=== PATIENT | female | born 1995 | race Caucasian/White ===

== ENCOUNTER 2016-12-27 07:04 | Day surgery (SDC) | payer OTHER ==
[2016-12-27 07:30] LABS: BASOPHILS % 0.6 (0.0-1.5); MEAN CORPUSCULAR HEMOGLOBIN 26.1 pg (28.0-34.0); MEAN CORPUSCULAR VOLUME 81.8 fl (80.0-100.0); MONOCYTES % 2.8 % (0.0-11.0); NEUTROPHILS # 2.6 # k/uL (1.4-7.7)
[2016-12-27 07:48] LABS: eGFR (African) > 60; eGFR (Non-African) > 60
== END 2016-12-27 07:05 ==
LOC: OPSURG 07:04
PROVIDERS: ATTEND General Practice
DX: Z53.8 Procedure and treatment not carried out for other reasons (principal)
CPT/HCPCS: 36415; 80053; 81025; 85025; 85610; 85730

== ENCOUNTER 2017-01-24 07:51 | Day surgery (SDC) | payer OTHER ==
[2017-01-24] MEDS ORDERED: fentaNYL CITRATE/PF 100 MCG/ 2ML AMP ONE (08:00)
[2017-01-24] MEDS ORDERED: SEVOFLURANE 250 ML LIQUID IH ONE (08:00)
[2017-01-24] MEDS ORDERED: MIDAZOLAM HCL 2 MG/2 ML VIAL ONE (08:00)
[2017-01-24] MEDS ORDERED: ROCURONIUM BROMIDE 10 MG/ML 5ML VIAL ONE (08:00)
[2017-01-24] MEDS ORDERED: LACTATED RINGERS 1,000 ML IV.SOLN IV ONE (08:00)
[2017-01-24] MEDS ORDERED: KETOROLAC TROMETHAMINE 30 MG/1ML VIAL ONE (08:00)
[2017-01-24] MEDS ORDERED: PROPOFOL 200 MG/20 ML VIAL IV ONE (08:00)
[2017-01-24] MEDS ORDERED: SUCCINYLCHOLINE CHLORIDE 20 MG/ML 10ML VIAL ONE (08:00)
[2017-01-24] MEDS ORDERED: DEXAMETHASONE SOD PHOS 4 MG/ML VIAL ONE (08:00)
[2017-01-24] MEDS ORDERED: SALINE FLUSH 10 ML DISP.SYRIN IVF ONE (08:00)
[2017-01-24] MEDS ORDERED: ePHEDrine SULFATE 50 MG/1 ML IVP ONE (08:00)
[2017-01-24] MEDS ORDERED: BUPIVACAINE HCL/PF 2.5 MG/ML 10ML VIAL IV ONE (08:00)
[2017-01-24] MEDS ORDERED: ONDANSETRON HCL/PF 4 MG/ 2ML VIAL ONE (08:00)
[2017-01-24] MEDS ORDERED: ACETAMINOPHEN 1,000 MG/100 ML INJ IV ONE (08:00)
[2017-01-24 08:35] LABS: BASOPHILS % 0.6 (0.0-1.5); EOSINOPHILS % 2.1 % (0.0-6.8); MEAN CORPUSCULAR HEMOGLOBIN 25.8 pg (28.0-34.0); MEAN CORPUSCULAR VOLUME 78.2 fl (80.0-100.0); NEUTROPHILS # 1.9 # k/uL (1.4-7.7)
[2017-01-24 08:51] LABS: eGFR (African) > 60; eGFR (Non-African) > 60
--- NOTE | 2017-01-25 12:30 | Operative Note ---
SURGEON: Gigi Daley MD ANESTHESIA: General endotracheal. ESTIMATED BLOOD LOSS: Less than 5 mL. PREOPERATIVE DIAGNOSIS: Desires sterility. POSTOPERATIVE DIAGNOSIS: Desires sterility. PROCEDURE PERFORMED: Laparoscopic tubal cauterization. OPERATIVE PROCEDURE AND FINDINGS: I spoke to the patient in detail prior to the operation. I explained the operation to her including the risks, side effects, and benefits of this particular operation. She was informed that occasionally it is possible to get after this particular procedure. With this understanding in mind, she desired to proceed. She was taken to the operating room and placed in the supine position. After an adequate level of general endotracheal anesthesia, she was prepped and draped in a lithotomy position. A single-tooth tenaculum was placed on the anterior lip of the cervix. Sound was placed in the uterine cavity. These instruments were secured together to use for manipulation of the uterus during the operation. Attention was turned to her abdomen. Marcaine was infiltrated in the infraumbilical area beneath the skin for a total of 10 mL of 0.25% Marcaine. A small incision was made. Laparoscopic sleeve and trocar were inserted in the peritoneal cavity. Trocar was removed. The laparoscopic was inserted. The uterus, fallopian tubes, and ovaries were normal in appearance, as was the bowel and pelvic peritoneum. The Moira bipolar forceps were used to cauterize both fallopian tubes from their junction with the tube and uterus out to the mid-portion of each tube. All cautery application lasted for 10 seconds. At the end of the operation, fuels sales representative pictures of the fallopian tubes were taken and the uterus. There was no bleeding identified. All instruments were removed from the peritoneal cavity. Gas was allowed to escape. The incision on the patient's abdomen was closed with interrupted 3-0 and interrupted 4-0 Vicryl. A Band-Aid was applied to the wound. All instruments were removed from her vagina and she was taken down out of the lithotomy position. She was awakened in the operating room. Needle, sponge, and instrument counts were performed by the OR circulating nurse and ob scrub tech. I was told the counts were correct. She was then transported from the operating room to the recovery room in very good condition. [place]
== END 2017-01-24 07:52 ==
LOC: OPSURG 07:51
PROVIDERS: ATTEND General Practice
DX: Z30.2 Encounter for sterilization (principal)
CPT/HCPCS: 36415; 80053; 81025; 85025; 85610; 85730; J0330; J1100; J1885; J2250; J2405; J2704; J3010; J3490; J7120; 58670; S1016